=== PATIENT | female | born 1935 | race Caucasian/White ===

== ENCOUNTER 2020-08-11 09:55 | Day surgery (SDC) | payer MEDICARE ==
[~2020-08-11] VITALS: Ht 170.2 cm; Wt 108.9 kg
[~2020-08-11 09:55] MED LIST: ALEN70TA82 PO; ARTIDRO OP; ASPI325T47 PO; CARV6.25 PO; COMB0.2S OP; COMBAER6 INH; LANTINJ4 SC; LASI40TA9 PO; LR 1,000 ML IV ONE; MAGN400T2 PO; MAPA500T2 PO; MONT10TA10 PO; PROAAER10 INH; PROTPAK PO; SIMV20TA22 PO; STRI1AER2 IN; ceFAZolin SOD 2 GM in IV 1 EA IV ONE
[2020-08-11] MEDS ORDERED: MACR100C43 PO (10:55)
[2020-08-11] MEDS ORDERED: BACT800T5 PO (10:55)
[2020-08-11] MEDS ORDERED: ROCURONIUM BROMIDE 50 MG/5 ML VIAL As Ordered ONE (11:59)
[2020-08-11] MEDS ORDERED: dexameTHASONE 4 MG/ML 1ML VIAL (J1100 PER 1MG) As Ordered ONE (11:59)
[2020-08-11] MEDS ORDERED: LIDOCAINE 2% 100MG/5ML SDV (FOR ANES.) As Ordered ONE (11:59)
[2020-08-11] MEDS ORDERED: fentaNYL 100 MCG/2 ML INJECTION (J3010) As Ordered ONE (11:59)
[2020-08-11] MEDS ORDERED: propofoL 200 MG/20 ML VIAL As Ordered ONE ×2 (11:59→12:17)
[2020-08-11] MEDS ORDERED: ONDANSETRON 4MG/2ML VIAL As Ordered ONE (11:59)
[2020-08-11] MEDS ORDERED: MIDAZOLAM INJ 2MG/2ML VIAL (J2250 PER 1MG) As Ordered ONE (11:59)
[2020-08-11] MEDS ORDERED: CONRAY-60 60% 50ML VIAL (Q9961) As Ordered ONE (12:19)
[2020-08-11] MEDS ORDERED: KETAMINE HCL 200 MG/20 ML VIAL As Ordered ONE (12:54)
--- NOTE | 2020-08-11 13:57 | REP ---
INDICATION: RIGHT CYSTO, LASER LITHO, STENT. COMPARISON: None. TECHNIQUE: Two images from C-arm fluoroscopy provided to Dr. Solis of the urology division were reviewed FINDINGS: Two views show initial view with a wire in lower pole collecting system calyx for the right kidney which is opacified with contrast. Second view shows contrast drained and a coiled pigtail stent in lower pole calyx of the right kidney the distal course of the ureters excluded from the field of view and the distal coil of the stent therefore not included. IMPRESSION: Status post right internal ureteral stent placement. Fluoroscopy time: 32 seconds. <Electronically signed by Jarred Cornelius > 08/11/20 [id number]
--- NOTE | 2020-08-11 14:06 | ROOPDOC ---
[facility] Report Of Operation Report of Operation DATE OF PROCEDURE: 08/11/20 PREPROCEDURE DIAGNOSES: Right ureteral calculus POSTPROCEDURE DIAGNOSES: Right ureteral and renal calculi PROCEDURE: Cystoscopy, right retrograde pyelogram, ureteroscopic stone extraction, stent insertion as well as x-ray interpretation SURGEON: Kulwant Solis MD IP ATTORNEY: None ANESTHESIA: Gen. ESTIMATED BLOOD LOSS: Approximately 0 mL. COMPLICATIONS: None REMARKS: Ureteral and renal calculi PROCEDURE NOTE: Patient brought to the operating room for stent removal and removal of renal and ureteral calculi DESCRIPTION OF PROCEDURE: Patient was placed on the table in supine position and given general anesthesia. She was then placed in the lithotomy position, prepped with Betadine paint and draped in an aseptic manner. After timeout, a 22 [place] cystoscope was inserted into the bladder. The end of the ureteral stent was grasped and brought out through the meatus where a wire guide was passed through the lumen up to the renal pelvis. A second wire was then inserted and a flexible ureteroscope was passed over this working wire area the patient had some stones in the ureter and renal pelvis all of which were extracted. A temporal dilator was used to help access the channel for multiple passes of the ureteroscope. Negative when all of the stones were retrieved from the calyces, the scope was removed as was the tunnel dilator under direct vision. The cystoscope was then backloaded over the safety wire and a 5 [place]uvian double-J stent was passed over the wire. The catheter curled well in the renal pelvis and in the bladder when the wire was removed. Patient was then awakened and sent to recovery room stable condition having tolerated procedure well. Fluoroscopy was used throughout the case to evaluate stone positions, instrument passage and stone extraction as well as stent placement. KULWANT SOLIS MD Aug 11, 2020 14:06
[2020-08-11 15:05] VITALS: BP 126/91
[2020-08-11] MEDS ORDERED: LR 1,000 ML IV SCH ×2 (15:45)
[2020-08-11] MEDS ORDERED: fentaNYL 100 MCG/2 ML INJECTION (J3010) IV PRN (15:45)
[2020-08-11] MEDS ORDERED: ONDANSETRON 4MG/2ML VIAL IV PRN (15:45)
[2020-08-11] MEDS ORDERED: NORCO, ANEXSIA 5/325MG TABLET (HYDROcodone/ACETAMINOPHEN) PO SCH (18:00)
[2020-08-19 20:07] LABS: CA Oxalate Dihy 10 % (.); Ca Ox Monohydrate 90 % (.); Size 3x3 mm (.)
== END 2020-08-11 15:40 | disposition home or self-care (01) ==
LOC: M SDC 09:55
PROVIDERS: ATTEND Urology
DX: N20.0 Calculus of kidney (principal); I10 Essential (primary) hypertension; I25.2 Old myocardial infarction; E78.5 Hyperlipidemia, unspecified; E11.9 Type 2 diabetes mellitus without complications; Z87.891 Personal history of nicotine dependence; R21 Rash and other nonspecific skin eruption; J44.9 Chronic obstructive pulmonary disease, unspecified; G47.30 Sleep apnea, unspecified; Z79.4 Long term (current) use of insulin; Z79.899 Other long term (current) drug therapy
CPT/HCPCS: 52332; 52352; 74420; 82365; 88300; C1769; C1894; C2617; J0690; Q9961